=== PATIENT | female | born 1950 ===

== ENCOUNTER 2021-05-10 10:23 | Outpatient (REF) | payer MEDICAID, SELFPAY ==
--- NOTE | 2021-05-10 14:15 | MHC.AU.ANR ---
Adult Audiological Evaluation Date of Visit: 05/10/21 Reason for Appointment: Audiological evaluation due to concern for decreased hearing and tinnitus. She notes that over the past six years the hearing in her right ear has been decreasing and ringing in the right ear has increased. She notes that over the past 2-3 months the ringing in her right ear has become constant and bothersome. She denies any concerns for her left ear. Does patient feel they have a hearing loss?: Yes If Yes, Which Ear?: Right Ear Has hearing been tested previously?: No Hearing Handicap Inventory: HHIE SCORE: 4 Based on HHIE score, patient has: No perceived hearing handicap Ear History: Family History of Hearing Loss?: Yes: Father and two brothers Bothersome Tinnitus/Ringing/Noises in Ears: Right Ear Medical History: Medical History: Thyroid Disease Medical History (Other): Both knees replaced 02/08/2020, Cataract surgery on right eye 09/12/2020 and left eye 12/14/2020 Allergies: NKA Medication List: Levothyroxine, Naproxen PRN, Glucosamine, Centrum, Vitamin D Otoscopy: Right Ear: Unremarkable Left Ear: Unremarkable Tympanometry: Tympanometry performed due to: Conductive component found in audiometric results Right Ear: Hypercompliant Middle Ear System (Type Ad) Left Ear: Normal Middle Ear System (Type A) Hearing Evaluation: Transducer(s) Used: Insert Earphones, Bone Conduction Method: Conventional Audiometry Stimuli Used: Pure Tones Right Ear: Description of Hearing: Moderate conductive hearing loss 250-500 Hz, sloping to moderately-severe conductive hearing loss 750-1000 Hz, severe mixed hearing loss 8064-7783 Hz, then rising to moderately severe conductive hearing loss at 4000 Hz, moderate hearing loss at 6000 Hz, and mild hearing loss at 8000 Hz. Air-bone gaps of 30-50 dBHL across the frequency range. Left Ear: Description of Hearing: Normal hearing from 250-1000 Hz, sloping to a mild sensorineural hearing loss from 7878-2562 Hz, and rising to normal hearing from 1803-5076 Hz. Speech Recognition Threshold (SRT): Method Used: Monitored Live Voice Stimuli Used: Spondee Words Right Ear: 60 dBHL Left Ear: 15 dBHL Word Discrimination: Method: Recorded Lists Word Lists Used: NU-6 Right Ear: 80% at 85 dBHL with 55 dBHL of masking Left Ear: 92% at 55 dBHL Recommendations: Referral to Ear, Nose, and Throat is recommended due to significant conductive hearing loss in the right ear. Advised patient that if hearing loss is unable to be treated or if she defers treatment, then hearing aid use in the right ear is recommended. Diagnosis: Primary Diagnosis: H90.A31 Mixed HL, Unilateral Right Ear, W/Restricted Contralateral Secondary Diagnosis: H90.A22 SNHL, Unilateral, Left Ear, W/Restricted Contralateral Hearing Services Performed: Services Performed: Comprehensive Audiological Evaluation (CPT 90269), Tympanometry (CPT 12555) Signature: Provider: Shanika Howell, CCC-A
== END 2021-05-10 10:24 | disposition home or self-care (01) ==
LOC: HO.SH 10:23
PROVIDERS: Visit Provider Nurse Practitioner Family
DX: Z01.118 Encounter for examination of ears and hearing with other abnormal findings (principal); H90.A31 Mixed conductive and sensorineural hearing loss, unilateral, right ear with restricted hearing on the contralateral side; H90.A22 Sensorineural hearing loss, unilateral, left ear, with restricted hearing on the contralateral side
CPT/HCPCS: 92557; 92567